=== PATIENT | female | born 1950 | race Caucasian/White ===

== ENCOUNTER → 2016-09-16 | Outpatient (CLI) | payer MEDICARE, OTHER | END | disposition short-term general hospital (02) | LOC: CLONCO 05:12 | DX: D50.9 Iron deficiency anemia, unspecified (principal); N18.9 Chronic kidney disease, unspecified; D63.1 Anemia in chronic kidney disease ==

== ENCOUNTER → 2016-11-21 | Outpatient (CLI) | payer MEDICARE, OTHER | END | disposition short-term general hospital (02) | LOC: CLNEPH 08:46 | DX: I12.0 Hypertensive chronic kidney disease with stage 5 chronic kidney disease or end stage renal disease (principal); N18.5 Chronic kidney disease, stage 5; D63.1 Anemia in chronic kidney disease; E87.6 Hypokalemia; R80.8 Other proteinuria; E83.42 Hypomagnesemia; N25.81 Secondary hyperparathyroidism of renal origin ==

== ENCOUNTER → 2016-12-19 | Outpatient (CLI) | payer MEDICARE, OTHER | END | disposition short-term general hospital (02) | LOC: CLNEPH 09:42 | DX: I12.0 Hypertensive chronic kidney disease with stage 5 chronic kidney disease or end stage renal disease (principal); N18.5 Chronic kidney disease, stage 5; D63.1 Anemia in chronic kidney disease; E87.6 Hypokalemia; E83.42 Hypomagnesemia; R80.8 Other proteinuria; N25.81 Secondary hyperparathyroidism of renal origin ==